=== PATIENT | male | born 1950 | race Caucasian/White ===

== ENCOUNTER 2022-08-16 06:56 | Day surgery (SDC) | payer OTHER ==
[~2022-08-16] VITALS: Ht 182.9 cm; Wt 95.7 kg
[~2022-08-16 06:56] MED LIST: ASCO500T11 PO; ATOR40TA52 PO; DIPH-515 GT; EPIN0.1I11 IJ; METO-158 PO; METO25TA5 PO; MONT-8 PO; OMEP20TA PO; TRAM50TA2 PO; TRAZ-228 PO
[2022-08-16] MEDS ORDERED: LIDOCAINE VISCOUS 2% 15ML UD MT STA (07:28)
[2022-08-16] MEDS ORDERED: MIDAZOLAM HCL 2MG/2ML 2ml VIAL (1mg/ml) IV ONE (07:30)
[2022-08-16] MEDS ORDERED: fentaNYL CITRATE 100 MCG/2 ML VL IV ONE (07:30)
[2022-08-16] MEDS ORDERED: LIDOCAINE VISCOUS 2% 15ML UD ONE (07:59)
[2022-08-16] MEDS ORDERED: fentaNYL CITRATE 100 MCG/2 ML VL ONE (08:00)
[2022-08-16] MEDS ORDERED: MIDAZOLAM HCL 2MG/2ML 2ml VIAL (1mg/ml) ONE ×2 (08:01)
== END 2022-08-16 09:24 | disposition home or self-care (01) ==
LOC: CATH 06:56
PROVIDERS: ATTEND Internal Medicine Cardiovascular Disease
DX: I10 Essential (primary) hypertension (principal); E78.5 Hyperlipidemia, unspecified; E11.9 Type 2 diabetes mellitus without complications; Z79.899 Other long term (current) drug therapy; Z79.84 Long term (current) use of oral hypoglycemic drugs
CPT/HCPCS: 93312; J2250; J3010; 99152

== ENCOUNTER 2022-08-20 07:03 | Day surgery (SDC) | payer OTHER ==
[~2022-08-20] VITALS: Ht 182.9 cm; Wt 95.7 kg
[2022-08-20] MEDS ORDERED: ANGIOMAX 250 MG VIAL IV ONE (10:26)
[2022-08-20] MEDS ORDERED: HEPARIN SODIUM (PORCINE) 5000 UNITS/ML 1ML VIAL ONE ×2 (10:26)
[2022-08-20] MEDS ORDERED: VERAPAMIL 2.5MG/ML INJ 2ML VIAL IV ONE (10:26)
[2022-08-20] MEDS ORDERED: fentaNYL CITRATE 100 MCG/2 ML VL ONE (10:26)
[2022-08-20] MEDS ORDERED: LIDOCAINE 2%HCL (LOCAL ANESTH.) INJ 20ML MDV ONE (10:27)
[2022-08-20] MEDS ORDERED: MIDAZOLAM HCL 2MG/2ML 2ml VIAL (1mg/ml) ONE (10:27)
[2022-08-20] MEDS ORDERED: IODIXANOL 320MG/ML 100ML BTL IV ONE (10:28)
[2022-08-20] MEDS ORDERED: SODIUM CHL 0.9% 0 ML ONE (10:28)
[2022-08-20] MEDS ORDERED: ATROPINE SULF 1 MG/10ml SYR ONE (11:31)
[2022-08-20] MEDS ORDERED: NOREPINEPHRINE 8 MG/250ML KIT 0 ML IV ONE (11:35)
== END 2022-08-20 14:04 | disposition home or self-care (01) ==
LOC: CATH 07:03
PROVIDERS: ATTEND Internal Medicine Cardiovascular Disease
DX: I35.0 Nonrheumatic aortic (valve) stenosis (principal); R07.9 Chest pain, unspecified; R06.09 Other forms of dyspnea; I10 Essential (primary) hypertension; E11.9 Type 2 diabetes mellitus without complications; I47.1 Supraventricular tachycardia; Z79.899 Other long term (current) drug therapy; Z79.84 Long term (current) use of oral hypoglycemic drugs
CPT/HCPCS: 76937; 93460; C1725; C1757; C1769; C1894; J1644; J2250; J3010; Q9967; 99152; 99153